=== PATIENT | male | born 1975 | race Caucasian/White ===

== ENCOUNTER 2016-11-30 15:54 | Inpatient (IN) | payer OTHER ==
[~2016-11-30] VITALS: Ht 182.9 cm; Wt 77.7 kg
[~2016-11-30 15:54] MED LIST: ACETAMINOPHEN325 M1 PO; ACETAMINOPHEN650 M2 PO; ACID REDUCER 1150 MG PO; ADULT MUCU100 MG/5 M PO; ADVAIR 100-501 EACH IH; ADVAIR 250/501 DISK IH; ADVAIR 500/501 DISK IH; ADVAIR HFA120 INHALA IH; ALBUTEROL17 GM IH; ALBUTEROL2.5 MG/3 M IH; AMOXICILLIN500 M1 PO; AMPICILLIN500 M1 PO; ANBESOL9 G1 MM; ANTI-DIARRHEA2 MG PO; ASPIR 8181 M1 PO; ASPIRIN E.C.81 M1 PO; ASPIRIN EC325 MG PO; ASPIRIN81 M1 PO; ASPIRIN81 M2 PO; ATIVAN0.5 MG PO; ATIVAN1 M1 PO; ATIVAN1 MG PO; ATORVASTATIN CA40 MG PO; ATROVENT 00.5 MG/2.5 IH; AUGMENTIN500 MG PO; AVELOX400 MG PO; Advair HFA 115/21 IH; Aspirin Chewable PO; Ativan PO; BISAC-EVAC10 MG PR; BISACODYL SUPP10 MG RC; BUSPAR5 MG PO; CALCIUM ACETAT667 M2 PO; CALCIUM ACETAT667 MG PO; CARVEDILOL12.5 MG PO; CARVEDILOL25 MG PO; CARVEDILOL3.125 MG PO; CEFTIN500 MG PO; CEFUROXIME500 MG PO; CEPHALEXIN500 MG PO; CIPRO500 MG PO; CLONIDINE HCL0.1 MG PO; COLACE10 MG/ML PO; COLACE100 MG PO; COREG12.5 M1 PO; COREG25 M1 PO; COREG6.25 M1 PO; COREG6.25 MG PO; COZAAR25 MG PO; Colace PO; Coreg PO; DESYREL 150 MG150 MG PO; DILAUDID2 MG PO; DOCUSATE SODIU100 MG PO; DOXYCYCLINE HY100 M3 PO; DULCOLAX10 MG PR; Diatx W/Zinc,Folbee PO; Dulcolax PR; DuoNeb IH; EFFIENT10 MG PO; ELIPHOS667 MG PO; ENEMA133 M2 RC; EPOGEN,PRO10000 UNIT IV; Epogen,Procrit IV; FLEET ENEMA-AD118 ML PR; FLEXERIL10 MG PO; FLUOXETINE HCL20 M1 PO; FLUOXETINE HCL20 MG PO; Flexeril PO; GABAPENTIN100 M1 PO; GABAPENTIN100 MG PO; GABAPENTIN300 MG PO; GARAMYCIN3.5 G1 BOTH EYES; GLUCAGEN1 MG IM/SC; GUAIFENESIN200 M2 PO; HECTOROL4 MCG/2 M1 IV; HYDROMORPHONE HC2 MG PO; IMODIUM A-D2 MG PO; IMODIUM2 MG PO; IPRATROPIU0.2 MG/1 M IH; KAYEXALATE15 GM/60 M PO; KAYEXALATE453.6 GM PO; LANOXIN,DIGI0.125 MG PO; LANTUS 10100 UNITS/ SC; LANTUS 3 M100 UNITS1 SC; LEVAQUIN500 MG PO; LEVOFLOXAC500 MG/101 IV; LEVOTHROID,SYN0.1 MG PO; LEVOTHROID125 MCG PO; LEVOTHYROXINE125 MCG PO; LEVOXYL125 MCG PO; LIPITOR80 MG PO; LISINOPRIL5 MG PO; LOMOTIL TABLET1 EACH PO; LOPERAMIDE2 M1 PO; LOPERAMIDE2 MG PO; LOPRESSOR25 MG PO; LORAZEPAM0.5 MG PO; LORAZEPAM1 MG PO; LORTAB 7.5/51 TABLET PO; LOSARTAN POTAS100 MG PO; LOSARTAN POTASS25 MG PO; LOSARTAN POTASS50 MG PO; Levothroid,Synthroid PO; Lipitor PO; Lopressor PO; METOPROLOL TART25 MG PO; MI-ACID80 MG PO; MIRALAX255 GM PO; MORPHINE CON20 MG/M1 PO; MORPHINE PO; MORPHINE S10 MG/5 ML PO; MORPHINE SULFAT10 M2 PO; MORPHINE SULFAT30 M5; MORPHINE SULFAT30 M5 PO; MS CONTIN,ORAMO30 M1 PO; MS CONTIN,ORAMO30 M2 PO; MS CONTIN,ORAMO30 MG PO; MS CONTIN,ORAMO60 MG PO; MS Contin,Oramorph S PO; MUCINEX600 MG PO; MULTIVITAMIN1 EAC1 PO; Maalox, Mylanta PO; Milk Of Magnesia,MOM PO; NEPHRO-VITE RX1 EACH PO; NEPHRO-VITE,1 TABLET PO; NEURONTIN300 MG PO; NITROGLYCERIN0.4 MG SL; NITROSTAT,NITR0.4 M1 SL; NITROSTAT0.4 MG SL; NOVOLOG 10100 UNITS/ SC; NOVOLOG PE100 UNITS/ SC; Neurontin PO; OMEPRAZOLE20 M2 PO; OMEPRAZOLE20 MG PO; PANTOPRAZOLE SO20 MG PO; PHENERGAN12.5 M1 PO; PHOSLO667 MG PO; PRILOSEC OTC20 MG PO; PRILOSEC20 MG PO; PRINIVIL10 MG PO; PROMETHAZINE HC25 M1 PO; PROVENTIL HFA6.7 GM IH; PROVENTIL,2.5 MG/0.5 IH; PROVENTIL,2.5 MG/3 M IH; PROVENTIL2.5 MG/3 M IH; PROZAC10 M1 PO; PROZAC10 M2 PO; PROZAC20 MG PO; PROzac PO; PYRIDOXINE HCL100 MG PO; Pepcid PO; Phenergan PO; Phoslo PO; Proventil,Ventolin H IH; Prozac PO; RANITIDINE HCL150 MG PO; RENVELA0.8 GM PO; RENVELA800 MG PO; ROBITUSSIN AC,T10 ML PO; ROBITUSSIN15 MG PO; ROCEPHIN1 GM/50 ML IV; SALINE NASAL SP45 ML BOTH NARES; SANTYL30 GM TP; SARAFEM15 MG PO; SIMETHICONE80 MG PO; SIMVASTATIN20 MG PO; SODIUM POL15 GM/60 M PO; SPIRIVA1 INHALATI IH; SPIRIVA1 INHALATI PO; SYNTHROID100 MCG PO; SYNTHROID125 MCG PO; SYNTHROID300 MCG PO; Santyl TP; THERAGRAN1 TABLET PO; TRAZODONE HCL100 MG PO; TRAZODONE HCL150 MG PO; TRAZODONE HCL50 MG PO; TYLENOL REGULA325 MG PO; TYLENOL325 M1 PO; Tylenol Regular Stre PO; VITAMIN B-6100 MG PO; VITAMIN C500 M1 PO; VITAMIN D2000 UNI1 PO; VITAMIN D22000 UNIT PO; VITAMIN D250000 UNIT PO; Vancomycin Pulse Dos IV; XYLOCAINE 5%35.44 GM TP; ZANTAC150 MG PO; ZEMPLAR5 MCG/ML IV; ZESTRIL,PRINIVI10 M1 PO; ZESTRIL,PRINIVI10 MG PO; ZITHROMAX500 MG PO; ZOCOR40 MG PO; ZOFRAN4 MG/2 M1 IV; Zestril,Prinivil PO; [UNRECOGNIZED DRUG - OTHER] MM; [UNRECOGNIZED DRUG - REMARK] IV
[2016-11-30 17:38] LABS: HEMATOCRIT 35.5 % (38.0-50.0); MCHC 32.7 G/DL (30.0-36.0); MCV 101.1 FL (86-99); MEAN PLAT.VOLUME 10.1 uM^3 (9.0-12.4); PLATELET COUNT 110 K/uL (156-360); RBC DIS.WIDTH-CV 14.1 % (11.8-14.6); RBC DIS.WIDTH-SD 52.1 % (39-53); RED BLOOD COUNT 3.51 M/uL (4.00-5.50)
[2016-11-30 17:47] LABS: CHLORIDE 93 mEq/L (99-109); POTASSIUM 4.2 mEq/L (3.7-5.4); SODIUM 136 mEq/L (136-147)
[2016-11-30 17:49] LABS: GLUCOSE 233 mg/dL (70-99)
[2016-11-30 17:50] LABS: ANION GAP 14 MEQ/L (2-14)
[2016-11-30 17:53] LABS: GFR ESTIMATE (CALCULATED) 12 mL/min/; UREA NITROGEN (BUN) 24 mg/dL (9-23)
[2016-11-30 18:01] LABS: TROP-I INTERPRETATION NEGATIVE; TROPONIN-I 0.05 ng/mL (0.0-0.30)
[2016-11-30] MEDS ORDERED: RENVELA800 MG PO ×2 (18:06→18:18)
[2016-11-30] MEDS ORDERED: LANTUS 3 M100 UNITS1 SC (18:09)
[2016-11-30] MEDS ORDERED: COLACE100 MG PO (18:14)
[2016-11-30] MEDS ORDERED: SENNA8.6 MG PO (18:16)
[2016-11-30] MEDS ORDERED: TRAZODONE HCL50 MG PO (18:18)
[2016-11-30] MEDS ORDERED: ALBUTEROL2.5 MG/3 M IH (18:23)
[2016-11-30] MEDS ORDERED: THROAT DROPS2.8 MG MM (18:24)
[2016-11-30] MEDS ORDERED: DULCOLAX10 MG PR (18:26)
[2016-11-30 18:38] LABS: INFLUENZA A VIRAL ANTIGEN NEGATIVE; INFLUENZA B VIRAL ANTIGEN NEGATIVE
[2016-11-30 19:08] LABS: CARBON DIOXIDE (BICARBONATE) 33.4 MEQ/L (20-31)
[2016-11-30 20:02] VITALS: BP 123/65
[2016-11-30 22:38] VITALS: BP 129/70
[2016-11-30 22:47] LABS: POINT-OF-CARE METER ID UU13113725
[2016-12-01 04:06] VITALS: BP 129/68
[2016-12-01 08:28] VITALS: BP 148/74
[2016-12-01 11:10] VITALS: BP 142/78
[2016-12-01 11:24] LABS: POINT-OF-CARE METER ID UU13113725
[2016-12-01 15:13] VITALS: BP 143/74
[2016-12-01 16:41] LABS: POINT-OF-CARE METER ID UU13113725
[2016-12-01 19:35] VITALS: BP 149/82
[2016-12-01 20:51] LABS: POINT-OF-CARE METER ID UU13113725
[2016-12-01 22:49] VITALS: BP 130/72
[2016-12-02 03:05] VITALS: BP 132/73
[2016-12-02 06:51] LABS: EOSINOPHIL (%) 2.3 % (0-5); EOSINOPHIL COUNT 0.2 K/uL (0-0.3); HEMATOCRIT 29.8 % (38.0-50.0); IMMATURE GRANULOCYTE (%) 0.5 % (0.0-0.7); INSTRUMENT ABS NEUTROPHIL CT 5.9 K/uL; LYMPHOCYTE COUNT 0.8 K/uL (1.0-2.8); MCH 33.1 PG (29.0-34.0); MCHC 33.2 G/DL (30.0-36.0); MCV 99.7 FL (86-99); MEAN PLAT.VOLUME 10.2 uM^3 (9.0-12.4); MONOCYTE (%) 14.9 % (3-12); MONOCYTE COUNT 1.2 K/uL (0-0.8); NEUTROPHIL (%) 72.2 % (45-76); NEUTROPHIL COUNT 5.9 K/uL (1.8-6.4); PLATELET COUNT 112 K/uL (156-360); RBC DIS.WIDTH-CV 13.8 % (11.8-14.6); RBC DIS.WIDTH-SD 50.4 % (39-53); RED BLOOD COUNT 2.99 M/uL (4.00-5.50); WHITE BLOOD COUNT 8.2 K/uL (4.1-10.2)
[2016-12-02 06:59] VITALS: BP 125/80
[2016-12-02 07:16] LABS: ANION GAP 14 MEQ/L (2-14); CHLORIDE 90 MEQ/L (99-109); GFR ESTIMATE (CALCULATED) 7 mL/min/; POTASSIUM 4.6 MEQ/L (3.7-5.4); SAMPLE HEMOLYSIS CHECK 0; SAMPLE ICTERIC CHECK 0; SAMPLE LIPEMIA CHECK 0; SODIUM 131 MEQ/L (136-147)
[2016-12-02 07:24] LABS: GLUCOSE 107 mg/dL (70-99); UREA NITROGEN (BUN) 49 mg/dL (9-23)
[2016-12-02 16:51] VITALS: BP 114/65
[2016-12-02 19:11] VITALS: BP 123/67
[2016-12-02 22:31] VITALS: BP 124/69
[2016-12-03 03:08] VITALS: BP 138/74
[2016-12-03 07:28] VITALS: BP 134/70
[2016-12-03 16:32] VITALS: BP 133/67
[2016-12-03 19:46] VITALS: BP 151/73
[2016-12-04 00:52] VITALS: BP 136/76
[2016-12-04 07:23] VITALS: BP 130/68
[2016-12-04 08:43] LABS: EOSINOPHIL (%) 2.4 % (0-5); EOSINOPHIL COUNT 0.2 K/uL (0-0.3); HEMATOCRIT 29.9 % (38.0-50.0); IMMATURE GRANULOCYTE (%) 0.7 % (0.0-0.7); IMMATURE GRANULOCYTE COUNT 0.1 K/uL; INSTRUMENT ABS NEUTROPHIL CT 5.5 K/uL; LYMPHOCYTE COUNT 0.7 K/uL (1.0-2.8); MCHC 33.1 G/DL (30.0-36.0); MCV 99.7 FL (86-99); MEAN PLAT.VOLUME 9.3 uM^3 (9.0-12.4); MONOCYTE (%) 14.3 % (3-12); MONOCYTE COUNT 1.1 K/uL (0-0.8); NEUTROPHIL (%) 73.3 % (45-76); NEUTROPHIL COUNT 5.5 K/uL (1.8-6.4); PLATELET COUNT 127 K/uL (156-360); RBC DIS.WIDTH-CV 13.5 % (11.8-14.6); RBC DIS.WIDTH-SD 49.2 % (39-53); WHITE BLOOD COUNT 7.5 K/uL (4.1-10.2)
[2016-12-04 08:54] LABS: ANION GAP 12 MEQ/L (2-14); CHLORIDE 92 MEQ/L (99-109); POTASSIUM 4.9 MEQ/L (3.7-5.4); SAMPLE HEMOLYSIS CHECK 0; SAMPLE ICTERIC CHECK 0; SAMPLE LIPEMIA CHECK 0; SODIUM 129 MEQ/L (136-147)
[2016-12-04 09:13] LABS: GFR ESTIMATE (CALCULATED) 8 mL/min/; UREA NITROGEN (BUN) 47 mg/dL (9-23)
[2016-12-04 09:25] LABS: GLUCOSE 173 mg/dL (70-99)
[2016-12-04 15:29] VITALS: BP 111/60
[2016-12-04 21:41] LABS: POINT-OF-CARE METER ID UU13113725
[2016-12-04 23:49] VITALS: BP 136/75
[2016-12-05 07:08] LABS: POINT-OF-CARE METER ID UU13113725
[2016-12-05 07:30] VITALS: BP 147/78
[2016-12-05] MEDS ORDERED: LEVOFLOXACIN500 MG PO (10:08)
[2016-12-05] MEDS ORDERED: HYDROMORPHONE HC2 MG PO (10:10)
[2016-12-05 11:35] VITALS: BP 148/85
== END 2016-12-05 14:00 | DRG 193 ==
LOC: EME 15:54 → EDOF 19:02 → 5EAST 19:02
PROVIDERS: Emergency Medicine; Family Medicine; Internal Medicine Nephrology
PROC: 5A1D60Z (ICD-10-PCS; principal; 2016-12-02)
DX: J18.9 Pneumonia, unspecified organism (principal); N18.6 End stage renal disease; I12.0 Hypertensive chronic kidney disease with stage 5 chronic kidney disease or end stage renal disease; J44.9 Chronic obstructive pulmonary disease, unspecified; I50.9 Heart failure, unspecified; I25.10 Atherosclerotic heart disease of native coronary artery without angina pectoris; I25.2 Old myocardial infarction; R07.81 Pleurodynia; H54.0 Blindness, both eyes; Z95.5 Presence of coronary angioplasty implant and graft; K21.9 Gastro-esophageal reflux disease without esophagitis; F32.9 Major depressive disorder, single episode, unspecified; I51.7 Cardiomegaly; M89.9 Disorder of bone, unspecified; D63.1 Anemia in chronic kidney disease; Z79.4 Long term (current) use of insulin; E11.40 Type 2 diabetes mellitus with diabetic neuropathy, unspecified; G89.29 Other chronic pain; D69.6 Thrombocytopenia, unspecified; E11.22 Type 2 diabetes mellitus with diabetic chronic kidney disease; I25.5 Ischemic cardiomyopathy; M25.512 Pain in left shoulder; M54.2 Cervicalgia; Z87.891 Personal history of nicotine dependence; R50.9 Fever, unspecified
CPT/HCPCS: 71010; 71020; 73030; 80048; 80048 91; 80069; 81003; 82803; 82948; 83605; 83880; 84484; 85025; 85027; 87040; 87086; 87502; 93005; 94640; 94640 76; 94799; 99202; 99281; 99285; J1170; J1956; J7030; Q0169

== ENCOUNTER 2017-01-26 07:03 | Day surgery (SDC) | payer OTHER ==
[~2017-01-26] VITALS: Ht 188 cm; Wt 79.0 kg
[~2017-01-26 07:03] MED LIST changes: +BREO ELLIPTA I1 EACH IH; +LEVOFLOXACIN500 MG PO; +SENNA8.6 MG PO; +THROAT DROPS2.8 MG MM
[2017-01-26 07:45] LABS: POINT-OF-CARE METER ID UU13113696
[2017-01-26 09:00] LABS: METH RESISTANT S AUREUS PCR POSITIVE (NEGATIVE); PROBE CHECK PASS
== END 2017-01-26 09:38 ==
LOC: CATH 07:03
PROVIDERS: Surgery
DX: T82.858A Stenosis of other vascular prosthetic devices, implants and grafts, initial encounter (principal); I12.0 Hypertensive chronic kidney disease with stage 5 chronic kidney disease or end stage renal disease; E11.22 Type 2 diabetes mellitus with diabetic chronic kidney disease; N18.6 End stage renal disease; Z99.2 Dependence on renal dialysis; Z79.4 Long term (current) use of insulin; Z87.891 Personal history of nicotine dependence
CPT/HCPCS: 82948; 87641; C1725; C1769; C1874; C1887; C1894; J1644; J2250; J3010

== ENCOUNTER 2017-04-12 10:13 | Day surgery (SDC) | payer OTHER ==
[~2017-04-12] VITALS: Ht 188 cm; Wt 79.0 kg
[~2017-04-12 10:13] MED LIST changes: +DUONEB 2.5-0.5 M3 ML PEP; +GLUTOSE 1537.5 GM PO
[2017-04-12 10:49] LABS: POINT-OF-CARE METER ID UU13113694
[2017-04-12 10:50] LABS: HEMATOCRIT 42.3 % (38.0-50.0); MCH 33.2 PG (29.0-34.0); MCHC 33.3 G/DL (30.0-36.0); MCV 99.5 FL (86-99); MEAN PLAT.VOLUME 9.5 uM^3 (9.0-12.4); PLATELET COUNT 118 K/uL (156-360); RBC DIS.WIDTH-CV 14.2 % (11.8-14.6); RBC DIS.WIDTH-SD 51.8 % (39-53); RED BLOOD COUNT 4.25 M/uL (4.00-5.50); WHITE BLOOD COUNT 6.2 K/uL (4.1-10.2)
[2017-04-12 11:25] VITALS: BP 171/80
[2017-04-12 11:45] LABS: METH RESISTANT S AUREUS PCR POSITIVE (NEGATIVE)
[2017-04-12 11:46] LABS: ANION GAP 13 MEQ/L (2-14); CHLORIDE 91 MEQ/L (99-109); GFR ESTIMATE (CALCULATED) 12 mL/min/; GLUCOSE 140 mg/dL (70-99); POTASSIUM 4.8 MEQ/L (3.7-5.4); SAMPLE HEMOLYSIS CHECK 0; SAMPLE ICTERIC CHECK 0; SAMPLE LIPEMIA CHECK 0; SODIUM 136 MEQ/L (136-147); UREA NITROGEN (BUN) 36 mg/dL (9-23)
[2017-04-12 11:54] LABS: PROBE CHECK PASS
[2017-04-12 14:53] LABS: POINT-OF-CARE METER ID UU13113675; POINT-OF-CARE USER ID ADMKMM76
[2017-04-12 15:40] VITALS: BP 145/79
[2017-04-12 16:47] VITALS: BP 149/85
== END 2017-04-12 16:59 ==
LOC: SDC 10:13
PROVIDERS: Surgery
DX: T82.590A Other mechanical complication of surgically created arteriovenous fistula, initial encounter (principal); I12.0 Hypertensive chronic kidney disease with stage 5 chronic kidney disease or end stage renal disease; E11.22 Type 2 diabetes mellitus with diabetic chronic kidney disease; N18.6 End stage renal disease; Z99.2 Dependence on renal dialysis; Z87.891 Personal history of nicotine dependence; Z79.4 Long term (current) use of insulin; Y83.2 Surgical operation with anastomosis, bypass or graft as the cause of abnormal reaction of the patient, or of later complication, without mention of misadventure at the time of the procedure
CPT/HCPCS: 80048; 82948; 85027; 87641; C1750; C1768; J0690; J1170; J1644; J2250; J2405; J2720; J3010

== ENCOUNTER → 2017-05-28 | Outpatient (CLI) | payer OTHER | LOC: AMB 11:24 | PROC: 02PY33Z Removal of Infusion Device from Great Vessel, Percutaneous Approach (ICD-10-PCS; principal; 2017-05-28) | DX: Z45.2 Encounter for adjustment and management of vascular access device (principal); N18.6 End stage renal disease; Z99.2 Dependence on renal dialysis ==

== ENCOUNTER 2017-09-02 07:24 | Day surgery (SDC) | payer OTHER ==
[~2017-09-02] VITALS: Ht 177.8 cm; Wt 78.0 kg
[~2017-09-02 07:24] MED LIST changes: +BENADRYL25 MG PO; +CERAVE MOISTUR TP; +FLEET MINERAL133 ML PR; +GLUCAGEN1 MG/1 ML IM; +HYDROMORPHONE HC4 MG PO; +MILK OF MAGN PO
== END 2017-09-02 10:03 ==
LOC: CATH 07:24
PROVIDERS: Surgery
DX: T82.858A Stenosis of other vascular prosthetic devices, implants and grafts, initial encounter (principal); N18.6 End stage renal disease; Z99.2 Dependence on renal dialysis; I70.213 Atherosclerosis of native arteries of extremities with intermittent claudication, bilateral legs
CPT/HCPCS: 82948; 87641; C1725; C1769; C1894; J1644; J2250; J3010

== ENCOUNTER 2018-02-04 10:04 | Inpatient (IN) | payer OTHER ==
[~2018-02-04] VITALS: Ht 185.4 cm; Wt 72.4 kg
[2018-02-04 10:41] LABS: BASOPHIL (%) 1.1 % (0-1); BASOPHIL COUNT 0.1 K/uL (0-0.1); EOSINOPHIL (%) 4.1 % (0-5); EOSINOPHIL COUNT 0.2 K/uL (0-0.3); HEMATOCRIT 35.2 % (38.0-50.0); IMMATURE GRANULOCYTE (%) 0.4 % (0.0-0.7); LYMPHOCYTE (%) 21.5 % (15-42); LYMPHOCYTE COUNT 1.2 K/uL (1.0-2.8); MCH 32.8 PG (29.0-34.0); MCHC 34.1 G/DL (30.0-36.0); MCV 96.2 FL (86-99); MONOCYTE (%) 13.3 % (3-12); MONOCYTE COUNT 0.7 K/uL (0-0.8); NEUTROPHIL (%) 59.6 % (45-76); NEUTROPHIL COUNT 3.2 K/uL (1.8-6.4); PLATELET COUNT 76 K/uL (156-360); RBC DIS.WIDTH-CV 12.9 % (11.8-14.6); RBC DIS.WIDTH-SD 45.6 % (39-53); RED BLOOD COUNT 3.66 M/uL (4.00-5.50); WHITE BLOOD COUNT 5.3 K/uL (4.1-10.2)
[2018-02-04 10:50] LABS: CHLORIDE 95 mEq/L (99-109); MAGNESIUM 2.2 mg/dL (1.3-2.7); POTASSIUM 4.4 mEq/L (3.7-5.4); SODIUM 134 mEq/L (136-147)
[2018-02-04 10:52] LABS: GLUCOSE 165 mg/dL (70-99)
[2018-02-04 10:55] LABS: CREATININE 5.3 mg/dL (0.6-1.3); GFR ESTIMATE (CALCULATED) 13 mL/min/ (58.99-99999)
[2018-02-04 10:56] LABS: UREA NITROGEN (BUN) 19 mg/dL (9-23)
[2018-02-04 11:02] LABS: TROP-I INTERPRETATION NEGATIVE; TROPONIN-I 0.05 ng/mL (0.0-0.30)
[2018-02-04] MEDS ORDERED: CARVEDILOL12.5 MG PO (15:03)
[2018-02-04] MEDS ORDERED: PROMETHAZINE HC25 M1 PO (15:07)
[2018-02-04 17:36] VITALS: BP 156/83
[2018-02-04 19:30] VITALS: BP 156/83
[2018-02-04 19:43] LABS: TROP-I INTERPRETATION NEGATIVE; TROPONIN-I 0.05 ng/mL (0.0-0.30)
[2018-02-04 20:22] VITALS: BP 148/76
[2018-02-05 02:17] LABS: HEMOGLOBIN 11.7 G/DL (12.5-16.6); MCH 32.4 PG (29.0-34.0); MCHC 33.4 G/DL (30.0-36.0); PLATELET COUNT 83 K/uL (156-360); RBC DIS.WIDTH-SD 46.2 % (39-53); RED BLOOD COUNT 3.61 M/uL (4.00-5.50); WHITE BLOOD COUNT 5.6 K/uL (4.1-10.2)
[2018-02-05 02:27] LABS: ALBUMIN 3.8 g/dL (3.2-4.8)
[2018-02-05 02:28] LABS: CHLORIDE 98 mEq/L (99-109); POTASSIUM 4.8 mEq/L (3.7-5.4); SODIUM 135 mEq/L (136-147)
[2018-02-05 02:30] LABS: GLUCOSE 153 mg/dL (70-99); TOTAL PROTEIN 6.6 g/dL (6.4-8.3)
[2018-02-05 02:34] LABS: ALKALINE PHOSPHATASE 127 IU/L (3-129); GFR ESTIMATE (CALCULATED) 10 mL/min/ (58.99-99999)
[2018-02-05 02:35] LABS: AST (GOT) 16 IU/L (2-34); UREA NITROGEN (BUN) 25 mg/dL (9-23)
[2018-02-05 02:37] LABS: ALT (GPT) 14 IU/L (3-49); CREATININE 6.7 mg/dL (0.6-1.3)
[2018-02-05 02:42] LABS: TROP-I INTERPRETATION NEGATIVE; TROPONIN-I 0.04 ng/mL (0.0-0.30)
[2018-02-05 07:39] VITALS: BP 145/72
[2018-02-05 11:57] VITALS: BP 162/81
== END 2018-02-05 17:28 | DRG 313 ==
LOC: EME 10:04 → 4EAST 12:34 → EDOF 12:34 → ENRESERV 13:18 → 4EAST 16:06
PROVIDERS: Emergency Medicine; Family Medicine; Internal Medicine
DX: R07.89 Other chest pain (principal); D69.6 Thrombocytopenia, unspecified; D63.1 Anemia in chronic kidney disease; I13.2 Hypertensive heart and chronic kidney disease with heart failure and with stage 5 chronic kidney disease, or end stage renal disease; I50.9 Heart failure, unspecified; N18.6 End stage renal disease; E11.22 Type 2 diabetes mellitus with diabetic chronic kidney disease; E55.9 Vitamin D deficiency, unspecified; E11.319 Type 2 diabetes mellitus with unspecified diabetic retinopathy without macular edema; E11.40 Type 2 diabetes mellitus with diabetic neuropathy, unspecified; E11.51 Type 2 diabetes mellitus with diabetic peripheral angiopathy without gangrene; J47.9 Bronchiectasis, uncomplicated; J84.10 Pulmonary fibrosis, unspecified; I25.5 Ischemic cardiomyopathy; I25.10 Atherosclerotic heart disease of native coronary artery without angina pectoris; Z95.5 Presence of coronary angioplasty implant and graft; Z99.2 Dependence on renal dialysis; G89.29 Other chronic pain; H54.8 Legal blindness, as defined in USA; E78.5 Hyperlipidemia, unspecified; E03.9 Hypothyroidism, unspecified; F32.9 Major depressive disorder, single episode, unspecified; F41.9 Anxiety disorder, unspecified; I25.2 Old myocardial infarction; Z79.4 Long term (current) use of insulin; Z87.891 Personal history of nicotine dependence
CPT/HCPCS: 71045; 80048; 80053; 82948; 83735; 84484; 85025; 85027; 93005; 94640; 94640 76; 99281; 99285